=== PATIENT | female | born 1945 | race Caucasian/White ===

== ENCOUNTER 2022-06-12 11:20 | Emergency (ER) | payer OTHER ==
--- OUTSIDE RECORDS SUMMARY | 2022-06-12 11:23 | XMS REPORT | Continuity of Care Document ---
:1945 Author Organization [facility] t Address [address] [place] [address] Care Team Providers Name Role Phone Harrison Schneider Attending Clinician Unavailable Harrison Schneider Attending Clinician Unavailable Lab, Adc Fam Pob I Attending Clinician Unavailable Jennifer Vallejo Attending Clinician Ce Herrera Attending Clinician CE BARRIGA Attending Clinician Unavailable Russell Moore Attending Clinician Harrison Schneider Admitting Clinician Unavailable Payers Payer Name Policy Type Policy Number Effective Date Expiration Date S ource Problems Condition Condition Condition Status Onset Resolution Last Treating Co mments Source Name Details Category Date Date Treatment Clinician Date 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 Hector n (disorder) (disorder) Active Problem 01/24/2020 [facility] Allergies, Adverse Reactions, Alerts Allergy Allergy Status Severity Reaction(s) Onset Inactive Treating Comm ents Source Name Type Date Date Clinician NO KNOWN Drug Active Univers ALLERGIE Class ity of [facility] Social History Social Habit Start Date Stop Date Quantity Comments [facility] to [facility]2 [facility] Smoking Status Start Date Stop Date Source Unknown if ever smoked [facility] Medications This patient has no known medications. Vital Signs Vital Name Observation Time Observation Value Comments Source Height/Length Measured 2021-07-27 10:35:43 162 cm Weight Dosing 2021-07-27 10:35:43 63.50 kg Weight Dosing 2019-12-04 17:28:47 Height/Length Measured 2019-12-04 17:28:47 Procedures This patient has no known procedures. Encounters Start End Encounter Admission Attending Care Care Encounter Source Date/Time Date/Time Type Type Clinicians Facility Department ID 2019-12-04 Inpatient Harrison Schneider [facility] [id number] 15:44:00 Harrison Schneider [facility] 2020-06-12 2020-06-12 Laboratory Lab, [facility] Fam Pob I [facility] 1.. [id number] Univers 11:24:18 11:44:18 Only [facility] [id number] ity of [place] [id number] Tye as Professio [phone] Pr dicnd nal [address] [place] [address] 2020-06-12 2020-06-12 Laboratory Lab, [facility] 1..[id number] [id number] 11:24:18 11:44:18 Only Fam Pob I Health [id number] [place] [id number] Professio [phone] nal [facility] [address] 2020-06-12 2020-06-12 Outpatient R [facility] [id number] Univers 11:20:00 11:20:00 ity of [facility] 2020-05-31 2020-05-31 Laboratory Lab, [facility] Fam Pob I [facility] 1.. [id number] Univers 10:07:54 10:27:54 Only Green, Ce Health [id number] ity of [place] [id number] Tye as Professio [phone] Pr dical nal [address] [place] [address] 2020-05-31 2020-05-31 Laboratory Lab, [facility] [id number] 10:07:54 10:27:54 Only Fam Pob I Health [id number] [place] [id number] Professio [phone] nal [facility] [address] 2020-05-31 2020-05-31 Outpatient R [facility] [id number] Univers 10:00:00 10:00:00 CE stewart [facility] 2020-01-21 2020-01-22 Outpatient nullFlavo MNA [id number] Memoria 13:15:00 04:59:59 r Neurology 00 l Rafael Dyer 2020-01-21 2020-01-21 Outpatient NIESHA [facility] [id number] 08:15:00 23:59:59 Russell 00 Salo 2020-01-21 2020-01-21 Outpatient [facility] [id number] Memoria 08:15:00 08:15:00 00 l Gomez 2019-12-04 2019-12-04 Outpatient 3 Harrison Schneider [facility] [id number] 16:27:00 16:27:00 Harrison Schneider -[id number] [facility] Results This patient has no known results.
--- NOTE | 2022-06-12 13:44 | RAD REPORT ---
EXAM DESCRIPTION: RAD - Forearm Right - 06/12/2022 1:18 pm CLINICAL HISTORY: wrist pain, swelling COMPARISON: <Comparisons> FINDINGS: Fracture is suspected at the shaft head junction of the distal ulna. Distal radius fractur e not confirmed. There are defects in the distal radius from prior surgical hardware placement. No ca rpal bone fracture or dislocation seen. Soft tissue swelling is present adjacent to the distal ulna. There is no dislocation or periosteal reaction noted. No foreign body or other soft tissue abnormality. IMPRESSION: Distal ulna fracture without distraction or angulation deformity.
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
[2022-06-12 14:50] VITALS: TEMP 97.7
[2022-06-12 14:51] VITALS: BP 129/70; O2SAT 98
== END 2022-06-12 14:38 | disposition home or self-care (01) ==
LOC: ER 11:20
PROC: 2W3CX1Z Immobilization of Right Lower Arm using Splint (ICD-10-PCS; principal; 2022-06-12)
DX: S52.601A Unspecified fracture of lower end of right ulna, initial encounter for closed fracture (principal); Z88.1 Allergy status to other antibiotic agents
CPT/HCPCS: 99282